=== PATIENT | female | born 1945 | race Caucasian/White ===

== ENCOUNTER 2021-05-23 19:42 | Emergency (ER) | payer OTHER ==
[~2021-05-23] VITALS: Ht 157.5 cm; Wt 122.5 kg
[2021-05-23 20:40] LABS: ABSOLUTE NEUTROPHILS 7.2 thou/uL (1.4-8.2); BASOPHILS 0.7 % (0.0-2.0); EOSINOPHILS 1.1 % (0.0-3.0); HEMATOCRIT 38.3 % (37.0-47.0); HEMOGLOBIN 13.1 gm/dL (12.0-15.0); MCH 31.1 pg (26.0-34.0); MCHC 34.2 g/dL (28.0-37.0); MONOCYTES 4.3 % (1.0-8.0); PLATELET COUNT 235 thou/uL (150-400); POLYS 74.9 % (36.0-66.0); RBC 4.21 mil/uL (4.20-5.00); RDW 14.7 % (10.5-14.5); WBC 9.6 thou/uL (4.0-11.0)
[2021-05-23 20:45] VITALS: BP 144/70
[2021-05-23] MEDS ORDERED: DULOXETINE HCL60 MG PO (20:47)
[2021-05-23] MEDS ORDERED: ROSUVASTATIN CA10 MG PO (20:47)
[2021-05-23 20:48] LABS: CALCIUM 8.6 mg/dL (8.5-10.1); POTASSIUM 3.8 mmol/L (3.5-5.1)
[2021-05-23] MEDS ORDERED: SINGULAIR 10 MG10 M1 PO (20:48)
[2021-05-23] MEDS ORDERED: HYDROCHLOROTHIA25 M1 PO (20:48)
[2021-05-23] MEDS ORDERED: TRAMADOL 50 MG50 MG PO (20:48)
[2021-05-23] MEDS ORDERED: METFORMIN HCL500 MG PO (20:48)
[2021-05-23] MEDS ORDERED: GABAPENTIN 100100 MG PO (20:48)
[2021-05-23] MEDS ORDERED: LEVOTHYROXINE25 MCG PO (20:48)
[2021-05-23] MEDS ORDERED: TRULICITY1.5 MG/0.5 SUBQ (20:48)
[2021-05-23] MEDS ORDERED: XARELTO1 EACH PO (20:49)
[2021-05-23 20:54] LABS: ALBUMIN 3.4 g/dL (3.4-5.0); TOTAL BILIRUBIN 0.6 mg/dL (0.2-1.0)
== END 2021-05-23 22:45 | disposition home or self-care (01) ==
LOC: ER 19:42
PROVIDERS: Physician Assistant
DX: R04.0 Epistaxis (principal); I10 Essential (primary) hypertension; I48.91 Unspecified atrial fibrillation; Z90.49 Acquired absence of other specified parts of digestive tract; Z90.710 Acquired absence of both cervix and uterus; Z98.890 Other specified postprocedural states; Z98.51 Tubal ligation status; Z79.84 Long term (current) use of oral hypoglycemic drugs; Z79.899 Other long term (current) drug therapy; Z79.891 Long term (current) use of opiate analgesic; Z88.6 Allergy status to analgesic agent; Z88.8 Allergy status to other drugs, medicaments and biological substances

== ENCOUNTER 2021-05-24 16:44 | Emergency (ER) | payer OTHER ==
[~2021-05-24] VITALS: Ht 157.5 cm; Wt 122.5 kg
[~2021-05-24 16:44] MED LIST: DULOXETINE HCL60 MG PO; GABAPENTIN 100100 MG PO; HYDROCHLOROTHIA25 M1 PO; LEVOTHYROXINE25 MCG PO; METFORMIN HCL500 MG PO; ROSUVASTATIN CA10 MG PO; SINGULAIR 10 MG10 M1 PO; TRAMADOL 50 MG50 MG PO; TRULICITY1.5 MG/0.5 SUBQ; XARELTO1 EACH PO
[2021-05-24 16:45] VITALS: BP 108/78
== END 2021-05-24 17:19 | disposition home or self-care (01) ==
LOC: ER 16:44
DX: R04.0 Epistaxis (principal); I10 Essential (primary) hypertension; I48.91 Unspecified atrial fibrillation; Z90.710 Acquired absence of both cervix and uterus; Z98.51 Tubal ligation status; Z90.89 Acquired absence of other organs; Z98.890 Other specified postprocedural states; Z88.1 Allergy status to other antibiotic agents

== ENCOUNTER 2021-06-01 17:49 | Emergency (ER) | payer OTHER ==
[~2021-06-01] VITALS: Ht 157.5 cm; Wt 117.9 kg
[2021-06-01 20:05] VITALS: BP 147/79
== END 2021-06-01 20:11 | disposition home or self-care (01) ==
LOC: ER 17:49
DX: S66.912A Strain of unspecified muscle, fascia and tendon at wrist and hand level, left hand, initial encounter (principal); S80.02XA Contusion of left knee, initial encounter; I10 Essential (primary) hypertension; Z90.710 Acquired absence of both cervix and uterus; Z90.49 Acquired absence of other specified parts of digestive tract; Z98.51 Tubal ligation status; Z79.899 Other long term (current) drug therapy; Z88.8 Allergy status to other drugs, medicaments and biological substances; W01.0XXA Fall on same level from slipping, tripping and stumbling without subsequent striking against object, initial encounter; Y93.89 Activity, other specified; Y92.89 Other specified places as the place of occurrence of the external cause; Y99.8 Other external cause status